=== PATIENT | male | born 1975 | race Two or more races ===

== ENCOUNTER → 2020-08-10 | Outpatient (CLI) | payer SELFPAY | LOC: M LABSMTC 13:26 | PROVIDERS: ATTEND Pediatrics | DX: Z20.822 Contact with and (suspected) exposure to COVID-19 (principal) ==

== ENCOUNTER → 2023-09-28 | Outpatient (CLI) | payer OTHER | LOC: M SLEEP 20:00 | PROVIDERS: ATTEND Physician Assistant Medical | DX: G47.30 Sleep apnea, unspecified (principal) ==

== ENCOUNTER → 2024-11-24 | Outpatient (CLI) | payer OTHER | LOC: M SLEEP 20:00 | PROVIDERS: ATTEND Physician Assistant Medical | DX: G47.33 Obstructive sleep apnea (adult) (pediatric) (principal) ==